=== PATIENT | female | born 1950 | race Caucasian/White ===

== ENCOUNTER 2019-10-23 12:23 | Outpatient (CLI) | payer MEDICARE, SELFPAY ==
[2019-10-23 13:58] LABS: Glucose 97 mg/dL (65-105)
[2019-10-23 14:11] LABS: Creatinine Urine 54.3 mg/dL
[2019-10-23 14:16] LABS: MALB Creatinine Ratio 85.1 mg/g (0-30); Microalbumin Urine Random 46.2 mg/L (0-16.7)
[2019-10-25 03:59] LABS: C-Peptide 0.81 ng/mL (0.80-3.85)
[2019-10-27 06:30] LABS: Glutamic acid decarboxylase AA <5 IU/mL (<5)
[2019-10-27 21:46] LABS: Islet Cell Antibody Screen NEGATIVE (NEGATIVE)
[2019-10-31 13:16] LABS: Zinc Transporter 8 Antibody <10 U/mL (<15)
== END 2019-10-23 12:24 | disposition home or self-care (01) ==
PROVIDERS: PCP Internal Medicine Endocrinology, Diabetes & Metabolism; Visit Provider Internal Medicine Endocrinology, Diabetes & Metabolism
DX: E11.9 Type 2 diabetes mellitus without complications (principal)
CPT/HCPCS: 36415; 82043; 82947; 84443; 84681; 86341

== ENCOUNTER 2020-08-05 13:00 | Outpatient (RCR) | payer MEDICARE, SELFPAY ==
[2020-05-30 12:59] VITALS: BMI 35.4
[2020-05-30 13:10] VITALS: BMI 35.4
== END 2020-08-18 14:32 | disposition home or self-care (01) ==
LOC: ANHDMC 13:00
PROVIDERS: Visit Provider Internal Medicine Endocrinology, Diabetes & Metabolism
DX: E11.65 Type 2 diabetes mellitus with hyperglycemia (principal); Z71.3 Dietary counseling and surveillance; Z71.89 Other specified counseling
CPT/HCPCS: 97802; G0108